=== PATIENT | female | born 1995 | race Caucasian/White ===

== ENCOUNTER 2018-10-19 10:17 | Emergency (ER) | payer OTHER ==
[~2018-10-19] VITALS: Ht 154.9 cm; Wt 47.6 kg
[~2018-10-19 10:17] MED LIST: BACTRIM DS TAB1 EACH PO; CYMBALTA20 MG PO; HYDROXYZINE HCL25 M2 PO; IBUPROFEN 600600 M1 PO; NORCO 5-325 TA1 EACH PO; TRAZODONE HCL50 MG PO
[2018-10-19] MEDS ORDERED: ZYRTEC10 M5 PO (10:26)
[2018-10-19 11:40] VITALS: BP 115/64
== END 2018-10-19 11:41 | disposition home or self-care (01) ==
LOC: M.ERS 10:17
DX: S53.491A Other sprain of right elbow, initial encounter (principal); Z91.018 Allergy to other foods; V80.010A Animal-rider injured by fall from or being thrown from horse in noncollision accident, initial encounter; Y93.89 Activity, other specified; Y92.89 Other specified places as the place of occurrence of the external cause; Y99.8 Other external cause status